=== PATIENT | female | born 1965 | race Caucasian/White ===

== ENCOUNTER → 2018-03-17 | Emergency (ER) | payer OTHER ==
[~2018-03-17] VITALS: Ht 154.9 cm; Wt 74.8 kg
[~2018-03-17] MED LIST: ASPIR 8181 MG; BTREX; CODEINE; COUMADIN6 MG; COUMADIN6 MG PO; IPRAT-ALBUT 0.5-3 ML IH; LEVOTHYROXINE25 MCG; LIPITOR20 MG; MEDROLPACK PO; MUCINEX DM ER1 EAC1 PO; NEURIN; PRAVASTATIN SOD20 MG; RELAGESIC TABL1 EACH PO; TESSALON PERLE100 M1 PO; VASOFLEX D1 CA1 EACH; ZITHROMAX500 MG PO; [UNRECOGNIZED DRUG - OTHER]
== END | disposition home or self-care (01) ==
LOC: ER 13:02
DX: J06.9 Acute upper respiratory infection, unspecified (principal); J11.1 Influenza due to unidentified influenza virus with other respiratory manifestations

== ENCOUNTER → 2018-08-31 06:44 | Outpatient (CLI) | payer OTHER | END | disposition home or self-care (01) | LOC: LAB 06:44 | DX: E72.11 Homocystinuria (principal); E72.12 Methylenetetrahydrofolate reductase deficiency; D75.1 Secondary polycythemia; D51.3 Other dietary vitamin B12 deficiency anemia; I26.99 Other pulmonary embolism without acute cor pulmonale; Z86.73 Personal history of transient ischemic attack (TIA), and cerebral infarction without residual deficits; G47.33 Obstructive sleep apnea (adult) (pediatric); E55.9 Vitamin D deficiency, unspecified; Z72.821 Inadequate sleep hygiene; E06.3 Autoimmune thyroiditis; I87.2 Venous insufficiency (chronic) (peripheral); E78.2 Mixed hyperlipidemia; D50.8 Other iron deficiency anemias; I10 Essential (primary) hypertension; E03.8 Other specified hypothyroidism; I63.89 Other cerebral infarction ==

== ENCOUNTER 2021-10-17 08:00 | Outpatient (CLI) | payer OTHER | END 2021-10-17 08:30 | disposition home or self-care (01) | LOC: PPH VACUNA 08:00 | PROVIDERS: ATTEND Emergency Medicine Pediatric Emergency Medicine | DX: Z23 Encounter for immunization (principal) ==

== ENCOUNTER 2022-02-24 08:00 | Outpatient (CLI) | payer OTHER | END 2022-02-24 08:30 | disposition home or self-care (01) | LOC: PPH VACUNA 08:00 | PROVIDERS: ATTEND Emergency Medicine Pediatric Emergency Medicine | DX: Z23 Encounter for immunization (principal) ==

== ENCOUNTER → 2022-08-12 | Emergency (ER) | payer OTHER ==
[~2022-08-12] VITALS: Ht 154.9 cm; Wt 79.8 kg
[~2022-08-12] MED LIST changes: +FAMOTIDINE40 MG PO; +FLONASE16 GM NS; +OMEPRAZOLE40 MG PO; +SYNTHROID50 MCG PO; +VASOFLEX TABLE1 EACH PO; +ZETIA10 MG PO
== END | disposition left against medical advice (07) ==
LOC: ER 10:19
DX: J03.90 Acute tonsillitis, unspecified (principal)